=== PATIENT | male | born 1970 | race Caucasian/White ===

== ENCOUNTER 2018-08-28 10:53 | Day surgery (SDC) | payer OTHER, MEDICAID, SELFPAY ==
[2018-08-28] VITALS (8 sets, daily range): BP systolic 97–149; BP diastolic 66–99; PULSE 72–94; RESP 10–121; TEMP 36.3–36.9; O2SAT 94–98; BMI 22.3
--- NOTE | 2018-08-28 11:16 | PM.HP.1 ---
History of Present Illness Date Patient Seen: 08/28/18 Time Patient Seen: 11:16 Chief complaint: [id number] COLONOSCOPY Narrative: Patient is a gentleman is been having some rectal bleeding. He is here for colonoscopy. This is his 1st colonoscopy. Patient History Surgical History Hx of inguinal hernia repair (Resolved) Social History marital status: unmarried,living together household members: significant other occupational status: employed alcohol intake: current substance use type: marijuana Family & Social History Social History: household members significant other Tobacco & Substance use: alcohol intake current Meds Home Medications Medication Instructions Recorded Confirmed Type No Known Home Medications 07/20/18 08/28/18 History Allergies Allergy/AdvReac Type Severity Reaction Status Date / Time No Known Drug Allergies Allergy Verified 08/28/18 11:09 Review of Systems Review of Systems All systems reviewed & are unremarkable except as noted in HPI and below Exam Narrative Exam Narrative: Pleasant cooperative patient no apparent distress. Lungs are clear to auscultation. No rales or rhonchi. Heart regular rate and rhythm no murmur gallop. Abdomen is soft nontender without mass. No obvious hernias. Patient is alert and oriented x3. Assessment & Plan Assessment & Plan narrative: The patient for a screening colonoscopy. I have discussed the procedure with them. Risks of bleeding, perforation which would necessitate major operation, failure to find remove all lesions, the potential tattoo were all discussed. All questions were answered. They wished to proceed.
[2018-08-28] MEDS: SODIUM CHLORIDE 0.9% 1,000 ML 200 ML IV (11:25)
--- NOTE | 2018-08-28 11:31 | PM.PREOP ---
Pre-operative Note Interval Note History & Physical reviewed/Exam performed by Physician: Yes Changes to H&P: No ASA Class (for procedural sedation): I
[2018-08-28] MEDS: fentaNYL 250 MCG/5 ML INJ IV (11:49)
[2018-08-28] MEDS: MIDAZOLAM 5 MG/5 ML VIAL IV (11:49)
--- NOTE | 2018-08-28 11:58 | PM.OP.ENDO ---
Operative Date/Time/Diagnoses Date of procedure: 08/28/18 Time of procedure: 11:58 Post-op diagnosis: same (Most likely due to internal hemorrhoids and hemorrhoids just inside the anal verge) Procedure & Clinicians Study performed: Colonoscopy Same procedure as scheduled: Yes Indications: Evaluate cause of bleeding Surgeon: João Workman Procedure Notes SCOAP/Timeout: Performed Procedure in detail: The patient was placed in the left lateral decubitus position and underwent IV sedation directed by the surgeon consisting of fentanyl and Versed. Digital exam was unremarkable. His prostate is normal in size and without palpable mass or tenderness.. The scope was inserted and I carefully looked at the anal canal and retroflexed in the rectum. Patient had fairly significant hemorrhoids. There was not any evidence of hemorrhoidal disease externally. The scope was then advanced through the rectum into the sigmoid, descending, transverse, and ascending colon. There was a lot of adherence thin layer of stool as I progressed. The cecum was reached identified by the ileocecal valve and the appendiceal opening. The ileocecal valve was normal in appearance. . The terminal ileum was normal in appearance. The scope was gradually brought out. No Polyps were found. The scope was removed and the patient tolerated the procedure well. No lesions were seen to account for the bleeding. However the prep was not optimal. I would recommend he have a repeat exam for screening purposes in 5 years. Findings: internal hemorrhoids Recommendations: Colonscopy in 5 years Disposition: PACU
== END 2018-08-28 12:55 | disposition home or self-care (01) ==
PROVIDERS: Family Provider Family Medicine; PCP Family Medicine; Visit Provider Specialist
PROC: 0DJD8ZZ Inspection of Lower Intestinal Tract, Via Natural or Artificial Opening Endoscopic (ICD-10-PCS; CPT 45378; principal; 2018-08-28 10:45)
DX: K62.5 Hemorrhage of anus and rectum (principal); K64.4 Residual hemorrhoidal skin tags; K64.8 Other hemorrhoids
CPT/HCPCS: 45378; J2250; J3010